=== PATIENT | female | born 1990 | race African-American/Black ===

== ENCOUNTER 2018-06-16 22:18 | Emergency (ER) | payer SELFPAY ==
[2018-06-16 23:52] LABS: ALT (SGPT) 10 U/L (8-55); AST (SGOT) 14 U/L (5-34); Alkaline Phosphatase 142 U/L (40-150); Anion Gap 13 mmol/L (10-20); BUN (Urea Nitrogen) 8 mg/dL (7.0-18.7); Bilirubin, Total 0.3 mg/dL (0.2-1.2); Calc. Creatinine Clearance 0 mL/min (70-130); Calcium 9.3 mg/dL (7.8-10.44); Carbon Dioxide 27 mmol/L (22-29); Chloride 104 mmol/L (98-107); Estimated GFR-MDRD 69; Globulin 4.5 g/dL (2.4-3.5); Glucose 99 mg/dL (70-105); Lipase 23 U/L (8-78); Protein, Total 8.5 g/dL (6.0-8.3); Sodium 140 mmol/L (136-145)
[2018-06-16 23:59] LABS: Eosinophils 1 % (0-10); Lymphocytes 54 % (21-51); MDiff Complete? YES; Mean Corpuscular HGB CONC 31.3 g/dL (32.0-36.0); Mean Corpuscular Hemoglobin 21.9 pg (27.0-31.0); Mean Corpuscular Volume 70.2 fL (78.0-98.0); Monocytes 7 % (0-10); Neutrophil 38 % (42-75); Platelet Count 458 thou/uL (130-400); Platelet Morphology Comment Appears Increased; RBC Distribution Width 13.3 % (11.5-14.5); Red Blood Cell (RBC) Count 5.47 mill/uL (4.20-5.40); White Blood Cell (WBC) Count 9.5 thou/uL (4.8-10.8)
[2018-06-17] MEDS ORDERED: Acetaminophen 500 MG TAB ONE (00:16)
[2018-06-17 00:46] LABS: Bilirubin Negative (Negative); Blood, Urine Negative (Negative); Clarity CLEAR (Clear); Glucose, Urine (Dipstick) Negative (Negative); Leukocyte Negative (Negative); Nitrite Negative (Negative); Protein, Urine (Dipstick) Negative (Neg-Trace); Specific Gravity, Urine 1.023 (1.002-1.036)
--- NOTE | 2018-06-17 08:12 | CT ---
PRELIMINARY REPORT/[facility]/EMERGENTY AFTER-HOURS PROCEDURE CT Abdomen and Pelvis With Contrast EXAM DATE/TIME: 06/17/2018 1:18 AM CLINICAL HISTORY: 27 years old, female; Pain; Abdominal pain; Localized; Lower; Patient HX: , F 27 presents to ed with lower and suprapubic abdominal pain. Denies n/v/d, fever or vaginal d/c. Lmp 3 months ago, PT has had multiple negative home tests. HX of normal periods. Denies any chronic conditions, daily meds, surgeries or allergies. Pain has persisted for the past week, normal appetite. Agreeable to pain meds at this time. TECHNIQUE: Axial computed tomography images of the abdomen and pelvis with intravenous contrast. Coronal reformatted images were created and reviewed. COMPARISON: No relevant prior studies available. FINDINGS: Lower thorax: No acute findings. ABDOMEN: Liver: Normal. No mass. Gallbladder and bile ducts: Cholelithiasis. No cholecystitis or biliary ductal dilatation. Pancreas: Normal. No ductal dilation. Spleen: Normal. No splenomegaly. Adrenals: Normal. No mass. Kidneys and ureters: Normal. No hydronephrosis. Stomach and bowel: Normal. No obstruction. No mucosal thickening. Appendix: Normal appendix. PELVIS: Bladder: Unremarkable as visualized. Reproductive: Uterus and ovaries are unremarkable. ABDOMEN and PELVIS: Intraperitoneal space: Normal. No free air. No significant fluid collection. Bones/joints: No acute fracture. No dislocation. Soft tissues: Unremarkable. Vasculature: Normal. No abdominal aortic aneurysm. Lymph nodes: Normal. No enlarged lymph nodes. IMPRESSION: No acute findings. Thank you for allowing us to participate in the care of your patient. Dictated and Authenticated by: Michael Petty MD 06/17/2018 2:28 AM Central Time ([place] & [place]) FINAL REPORT EMERGENCY AFTER HOURS CT ABDOMEN AND PELVIS WITH IV CONTRAST: Date: 06/17/18 HISTORY: Lower abdominal pain and suprapubic abdominal pain. IMPRESSION: 1. Cholelithiasis with gallbladder filled with multiple gallbladder calculi. No pericholecystic flui d is appreciated on this exam. No intra or extrahepatic biliary ductal dilatation is noted. 2. Subcentimeter, too small to characterize, hypodense lesion inferior pole right kidney. 3. No CT evidence of appendicitis. 4. No acute findings are seen in the abdomen or pelvis. Findings are in agreement with the preliminary report by Josiane. POS: SUJEY
[2018-06-17] MEDS ORDERED: ISOVUE-370 76%-LOCM 1 ML ONE (10:34)
[2018-06-17 20:54] LABS: Chlamydia by PCR DETECTED (NotDetected); GC by PCR Not Detected (NotDetected)
== END 2018-06-17 02:40 | disposition home or self-care (01) ==
LOC: ERS 22:18
DX: R10.30 Lower abdominal pain, unspecified (principal); R10.814 Left lower quadrant abdominal tenderness; R10.813 Right lower quadrant abdominal tenderness; F17.210 Nicotine dependence, cigarettes, uncomplicated
CPT/HCPCS: 36415; 74177; 80053; 81003; 83690; 84702; 85025; 87480; 87491; 87510; 87591; 87660

== ENCOUNTER 2023-04-22 10:24 | Emergency (ER) | payer OTHER, SELFPAY | END 2023-04-22 11:40 | disposition home or self-care (01) | LOC: ERS 10:24 | DX: R59.1 Generalized enlarged lymph nodes (principal); F17.210 Nicotine dependence, cigarettes, uncomplicated | CPT/HCPCS: 76999 ==